=== PATIENT | female | born 1995 | race Caucasian/White ===

== ENCOUNTER → 2019-12-31 14:19 | Outpatient (CLI) | payer OTHER, SELFPAY ==
[2020-01-04 00:15] LABS: COVID19 Sendout Not Detected (Not Detected)
== END ==
PROVIDERS: Visit Provider Physician Assistant
DX: J02.9 Acute pharyngitis, unspecified (principal)
CPT/HCPCS: 87635

== ENCOUNTER → 2020-05-02 10:18 | Outpatient (CLI) | payer OTHER, SELFPAY ==
[2020-05-02 12:12] LABS: Add Manual Diff / Slide Review NO; Basophils Absolute Auto 0 /uL (0-100); Basophils Percent Auto 0.4 % (0-2); Eosinophils Absolute Auto 0 /uL (0-450); Eosinophils Percent Auto 0.8 % (2-4); Hematocrit 38.2 % (36-46); Hemoglobin 12.8 g/dL (12.0-16.0); Lymphocytes Absolute Auto 2000 /uL (1100-4500); Lymphocytes Percent Auto 31.1 % (25-40); Mean Corpuscular HGB Conc 33.5 % (30-36); Mean Corpuscular Hemoglobin 28.4 PG (26-34); Mean Corpuscular Volume 84.7 fL (80-100); Monocytes Absolute Auto 300 /uL (0-900); Monocytes Percent Auto 4.8 % (3-14); Neutrophils Absolute Auto 4000 /uL (1500-7000); Neutrophils Percent Auto 62.9 % (50-75); Platelet Count 201 X10^3/uL (150-400); Red Blood Cell Count 4.51 X10^6/uL (4.0-5.2); Red Cell Distribution Width 12.9 % (11.6-14.8); White Blood Cell Count 6.4 X10^3/uL (4.5-11.0)
[2020-05-02 12:32] LABS: Pregnancy Test Urine Negative (Negative); UR Morphine/Opiate cutoff 300 Negative (Negative); Ur Creatinine Normal (Normal); Ur Specific Gravity Normal (Normal); Urine Amphetamines Negative (Negative); Urine Barbiturates Negative (Negative); Urine Benzodiazepines Negative (Negative); Urine Cocaine Negative (Negative); Urine MDMA Negative (Negative); Urine Methadone Negative (Negative); Urine Methamphetamines Negative (Negative); Urine Oxycodone Negative (Negative); Urine Phencyclidine Negative (Negative); Urine Tetrahydrocannabinol Positive (Negative); Urine Tricyclic Antidepressant Negative (Negative); Urine pH Normal (Normal)
[2020-05-02 12:45] LABS: Lithium 0.5 mmol/L (0.6-1.2)
[2020-05-02 12:51] LABS: Alanine Aminotransferase 9 IU/L (<35); Albumin 4.9 g/dL (3.5-5.0); Albumin Globulin Ratio 1.6 (1.0-2.8); Alkaline Phosphatase 62 U/L (38-126); Aspartate Aminotransferase 39 IU/L (14-36); BUN Creatinine Ratio 18.1 (6-22); Bilirubin Total 0.2 mg/dL (0.2-1.3); Blood Urea Nitrogen 13 mg/dL (7-17); Calcium 10.1 mg/dL (8.4-10.2); Carbon Dioxide 27 mmol/L (22-32); Chloride 105 mmol/L (98-107); Estimated Glomerular Filt Rate > 60.0 mL/min (>60); Globulin 3.1 g/dL (1.7-4.1); Glucose 85 mg/dL (70-100); HEMOLYSIS < 15 (0-50); Potassium 4.5 mmol/L (3.4-5.1); Sodium 137 mmol/L (137-145)
[2020-05-02 13:05] LABS: Free T4, Direct Thyroxine 0.97 ng/dL (0.78-2.19)
[2020-05-02 13:20] LABS: Thyroid Stimulating Hormone 1.55 uIU/mL (0.47-4.68)
== END ==
PROVIDERS: Referring Provider Psychiatry & Neurology Psychiatry; Visit Provider Psychiatry & Neurology Psychiatry
DX: F31.81 Bipolar II disorder (principal)
CPT/HCPCS: 36415; 80053; 80178; 80305; 81025; 84439; 84443; 85025; 90792

== ENCOUNTER 2020-09-23 17:41 | Emergency (ER) | payer OTHER, MEDICAID, SELFPAY ==
[2020-09-23 17:48] VITALS: BP 114/72; PULSE 83; RESP 14; TEMP 36.9; O2SAT 99; BMI 24.9
--- NOTE | 2020-09-23 18:36 | ED_ITS ---
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 Patient was having some vaginal dryness, she has been using a Replens vaginal gel which was recommended the an acquaintance. Patient states that it is white in color. She has been using it for 3 days, use it for another 3 day. On the 18 of September. Patient noted that she is began to have white discharge that is clumps. She has appreciated this before and after she had sexual activity with her partner. She has had some discomfort with sexual activity but she states that was present prior to using the medication and that was why she was using the vaginal gel. She denies any fevers, she denies any abdominal, back or flank pain. She denies any vaginal bleeding. She denies any urinary or GI symptoms. Patient states that she takes lithium and is having Wellbutrin added shortly to her medications. She was concerned about possible yeast infection although she did note in the reviews that this medication will sometimes have white discharge after use. Patient has not had any fevers, she has not had any itching, no burning, no irritation or other skin changes appreciated. She states her normal discharge has ceased. Related Data Previous Rx's Medication Instructions Recorded lithium carbonate 300 mg tablet 600 mg PO BEDTIME #60 tab 07/11/20 Allergies Allergy/AdvReac Type Severity Reaction Status Date / Time methadone Allergy Severe angioedema Verified 09/23/20 17:52 nitroglycerin Allergy Severe pancreatiti Verified 09/23/20 17:52 [From Nitro-Bid] s sumatriptan Allergy Severe anaphylatic Verified 09/23/20 17:52 reaction nitrofurantoin Allergy Verified 09/23/20 17:52 Review of Systems Review of Systems ROS Unobtainable: All systems reviewed & are unremarkable except as noted in HPI and below Patient History alcohol intake frequency: holidays/special occasions only Substance Use Type: does not use Exam Narrative Exam Narrative: GENERAL: Alert and oriented x three, thin, well-appearing female in mild distress. HEENT: Head normocephalic, atraumatic, EOMI, pupils reactive, face symmetric, moist mucous membranes NECK: Supple, full range of motion CARDIOVASCULAR: Regular rate and rhythm without murmurs, rubs or gallops. RESPIRATORY: Breath sounds equal bilaterally, no wheezes rales or rhonchi. ABDOMEN: Soft, nontender. Normoactive bowel sounds all 4 quadrants. No guarding or rebound, rigidity, no mass : No CVA tenderness Female: external vaginal exam is normal, the intravaginal tissue is pink does appear dry no vaginal bleeding, patient does have a grainy multi gritty white discharge, there is no foul odor there is no thin, whitish or grayish discharge, no discoloration, no cervical motion tenderness, normal speculum exam, no adnexal tenderness/mass. Bimanual exam is normal, no enlarged or tender uterus. Non-gravid. 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 EXTREMITIES: Normal range of motion, no clubbing or edema. Neurovascularly intact NEUROLOGICAL: Cranial nerves II through XII grossly intact. Moving all extremities SKIN: Warm, dry, no petechiae, no rashes or lesions. Initial Vital Signs Initial Vital Signs: Vital Signs Temperature 98.4 F 09/23/20 17:48 Pulse Rate 83 09/23/20 17:48 Respiratory Rate 14 09/23/20 17:48 Blood Pressure 114/72 09/23/20 17:48 Pulse Oximetry 99 09/23/20 17:48 Course Orders Ordered: ED Orders 09/23/20 18:52 Genital Culture Stat Wet Prep Tric BV Denisse Stat 09/23/20 18:59 Chlamydia Gonorrhea PCR -URINE Stat Reevaluation(s) Reevaluation #1: patient updated on wet prep findings and plan to await cultures. My suspicion for infection is currently low. She has already been in process of setting up appropriate follow up. Time: 19:36 Vital Signs Vital signs: Vital Signs - 8 hr 09/23/20 17:48 Temperature 98.4 F Pulse Rate 83 Respiratory Rate 14 Blood Pressure 114/72 Pulse Oximetry 99 MDM - Female Genitourinary Lab Data Labs: Point of Care Testing Test Results Negative Urine Dip Bedside Urine Glucose Negative Bedside Urine Bilirubin - Negative Bedside Urine Ketone - Negative Urine Specific [place] 1.020 Bedside Urine Occult Blood - Negative Bedside Urine pH 6.5 Bedside Urine Protein - Negative Bedside Urine Urobilinogen - Negative Bedside Urine Nitrite - Negative Bedside Urine Leukocytes - Negative Esterase Discharge Plan Departure Patient Disposition: Home Clinical Impression: Vaginal discharge Instructions: DI for Vaginal Discharge Activity Restrictions/Additional Instructions: Follow up with the roll clamp operator that you have selected for follow up in [place]. I suspect your discharge today is related to the replens gel that you have been using. You can use a water based lubricant for sexual activity in the short term until you are seen by supervisor floor assembly for short term symptoms relief. There are pending vaginal cultures, these should result in the next 48-72 hours and you will be contacted if positive and not on the appropriate medications. Please return for fevers, new abdominal, back or flank pain, vaginal pain, excessive vaginal bleeding such as going through 1 pad per hour or more, lightheadedness or passing out, nausea vomiting or other GI or urinary symptoms. Prescriptions: No Action lithium carbonate 300 mg tablet 600 mg PO BEDTIME Qty: 60 RF: 3
[2020-09-23 19:40] VITALS: BP 118/71; PULSE 76; RESP 17; O2SAT 97
== END 2020-09-23 19:41 | disposition home or self-care (01) ==
PROVIDERS: Emergency Provider Emergency Medicine
DX: N89.8 Other specified noninflammatory disorders of vagina (principal)
CPT/HCPCS: 81003; 81025; 87070; 87205; 87210; 99282; 99283

== ENCOUNTER 2020-10-01 14:34 | Emergency (ER) | payer OTHER, MEDICAID, SELFPAY ==
[2020-10-01 14:58] VITALS: BP 131/60; PULSE 69; RESP 17; TEMP 36.8; O2SAT 100
--- NOTE | 2020-10-01 16:58 | ED.SKABFB ---
HPI - Skin/Abscess/Foreign Bdy General Chief complaint: Skin/Abscess/Foreign Body Stated complaint: itchy rash on left leg for last 3 days Time Seen by Provider: 10/01/20 14:47 Source: patient Mode of arrival: Ambulatory Limitations: no limitations History of Present Illness HPI narrative: 24-year-old female daily smoker with history of ADHD and anxiety as well as bipolar presents with a tender swollen red region of skin overlying her left anterior hip. She denies any obvious injury or break in the skin. She denies any significant swelling or drainage. She denies systemic findings such as fever, chills nor nausea or vomiting. Additionally, she has a small tender swollen lump in her. She has had no abdominal pain or nausea or vomiting. She has had no dysuria, frequency or urgency. She denies vaginal bleeding or discharge. MD complaint: discoloration Onset (ago): day(s) Tetanus up to date: yes Location: LLE (Left anterior hip) Severity: mild Quality: burning and aching Pain Consistency: constant Exacerbating factors: palpation Context: none Associated symptoms: denies other symptoms Treatments prior to arrival: none Related Data Home Medications Medication Instructions Recorded Confirmed bupropion HCl 150 mg 24 hr tablet, 150 mg PO QAM 09/28/20 09/28/20 extended release Previous Rx's Medication Instructions Recorded lithium carbonate 300 mg tablet 600 mg PO BEDTIME #60 tab 07/11/20 doxycycline hyclate 100 mg PO BID #20 tab 10/01/20 Allergies Allergy/AdvReac Type Severity Reaction Status Date / Time methadone Allergy Severe angioedema Verified 10/01/20 15:01 nitrofurantoin Allergy Severe Abdominal Verified 10/01/20 15:02 Pain sumatriptan Allergy Severe anaphylatic Verified 10/01/20 15:01 reaction Review of Systems Constitutional Constitutional: Denies chills, Denies fatigue, Denies fever(s), Denies frequent falls, Denies lethargy and Denies weakness Eyes Eyes: Denies change in vision, Denies eye discharge, Denies irritation and Denies loss of vision ENT Ears, Nose, Mouth, and Throat: Denies change in voice, Denies dizziness, Denies neck pain, Denies sore throat and Denies throat swelling Cardiovascular Cardiovascular: Denies chest pain, Denies irregular heart rhythm, Denies lightheadedness, Denies palpitations, Denies dyspnea, Denies dyspnea on exertion and Denies orthopnea Respiratory Respiratory: Denies cough, Denies dyspnea, Denies dyspnea on exertion and Denies wheezing Gastrointestinal Gastrointestinal: Denies abdominal pain, Denies change in bowel habits, Denies diarrhea, Denies nausea and Denies vomiting Musculoskeletal Musculoskeletal: Denies neck pain and Denies numbness Integumentary/Breasts Skin/Breast: Denies pruritus, Reports erythema, Denies rash, Reports skin pain, Reports skin swelling and Denies wounds Neurologic Neurologic: Denies behavioral changes, Denies confusion, Denies dizziness, Denies frequent falls, Denies loss of vision, Denies numbness and Denies weakness Psychiatric Psychiatric: Denies anxiety, Denies behavioral changes, Denies confusion, Denies depression, Denies homicidal ideation and Denies suicidal ideation Endocrine Endocrine: Denies fatigue, Denies flushing and Denies palpitations Hematologic/Lymphatic Hematologic/Lymphatic: Denies easy bruising Allergic/Immunologic Allergic/Immunologic: Denies urticaria, Denies throat swelling and Denies wheezing Patient History Social History Smoking Status: Current every day smoker Smoking Status: Current every day smoker alcohol intake frequency: holidays/special occasions only Substance Use Type: does not use Exam Narrative Exam Narrative: GEN: AOx3 and in mild distress EYES: Pupils are equal, round, and reactive to light and accommodation. Extraoccular muscles are intact bilaterally. There is no subconjunctival hemorrhage or exudate. CHEST: Lungs are clear to auscultation bilaterally and free of wheezes, rales, or rhonchi. Heart rate is regular rhythm, there are no murmurs, clicks, rubs, or gallops. There is no chest wall tenderness. ABD: Abdomen is soft and nontender. There is no guarding or rebound. Bowel sounds are normal in all 4 quadrants. There is no mass or organomegaly. EXT: Full painless ROM of all extremities with no loss of sensation or strength. SKIN: 7 x 10 cm region of erythema, warmth, minimal swelling and tenderness on left anterior hip. There is no induration, fluctuance, obvious break in the skin or drainage. She does have 1 reactive lymph node in her left inguinal region Initial Vital Signs Initial Vital Signs: Vital Signs Temperature 98.2 F 10/01/20 14:58 Pulse Rate 69 04/10/21 14:58 Respiratory Rate 17 10/01/20 14:58 Blood Pressure 131/60 10/01/20 14:58 Pulse Oximetry 100 10/01/20 14:58 Course Orders Ordered: Discontinued Medications Doxycycline Hyclate (Doxycycline Hyclate 100 Mg Tablet) 100 mg PO NOW ONE Stop: 10/01/20 17:23 Last Admin: 10/01/20 17:34 Dose: 100 mg Documented by: JODI Vital Signs Vital signs: Vital Signs - 8 hr 10/01/20 14:58 Temperature 98.2 F Pulse Rate 69 Respiratory Rate 17 Blood Pressure 131/60 Pulse Oximetry 100 MDM - Skin/Abscess/Foreign Bdy Lab Data Labs: Point of Care Testing Test Results Negative Discharge Plan Departure Patient Disposition: Home Clinical Impression: Cellulitis of hip, left Instructions: DI for Cellulitis -- Adult Activity Restrictions/Additional Instructions: *You have been diagnosed with [redness pain and swelling consistent with cellulitis. There is no evidence at this point of an abscess that would require drainage] *What to do: *Take medications as directed: Antibiotic was sent to [facility] in [place] *Follow up with your primary care provider in 2-3 days, call for an appointment. Let them know you were seen in the Emergency Department and that we ask that you be seen in follow up *Return to ER if you should have any new, worsening or concerning symptoms, such as [fever, chills, nausea, vomiting or worsening symptoms] Prescriptions: New doxycycline hyclate 100 mg tablet 100 mg PO BID Qty: 20 RF: 0 No Action lithium carbonate 300 mg tablet 600 mg PO BEDTIME Qty: 60 RF: 3 bupropion HCl 150 mg tablet extended release 24 hr 150 mg PO QAM RF: 0 Referrals: Marian Tena MD [Primary Care Provider] -
[2020-10-01 17:31] VITALS: BP 123/80; PULSE 69; RESP 15; O2SAT 100
[2020-10-01] MEDS: DOXYCYCLINE HYCLATE 100 MG TABLET PO (17:34)
--- NOTE | 2020-10-01 17:39 | PC.NURSE ---
Left hip redness, swelling, heat, with painful lymph nodes
== END 2020-10-01 17:40 | disposition home or self-care (01) ==
PROVIDERS: Emergency Provider Emergency Medicine; PCP Family Medicine
DX: L03.116 Cellulitis of left lower limb (principal)
CPT/HCPCS: 81025; 99283

== ENCOUNTER 2020-11-02 17:56 | Emergency (ER) | payer OTHER, MEDICAID, SELFPAY ==
[2020-11-02 18:04] VITALS: BP 107/57; PULSE 79; RESP 16; TEMP 36.7; O2SAT 100
--- NOTE | 2020-11-02 19:42 | ED.SKABFB ---
HPI - Skin/Abscess/Foreign Bdy General Chief complaint: Skin/Abscess/Foreign Body Stated complaint: pain, hands are peeling, medication reaction Time Seen by Provider: 11/02/20 19:42 Source: patient Mode of arrival: Ambulatory History of Present Illness HPI narrative: 25-year-old woman with a history of bipolar disorder presents with hands peeling. She was recently treated for left thigh cellulitis with doxycycline. This cellulitis resolved promptly. She noticed that her hands became quite swollen while she was on the antibiotics once the antibiotics were discontinued the swelling went down and she developed a dry peeling rash over both hands. It has been about a week at this point and she is now noticing some pain and tenderness in the right axilla. She is using an [id number] lotion with Lac-Hydrin in it multiple times a day. She denies fevers, redness, purulence or drainage, chest pain, dyspnea, palpitations, abdominal pain, vomiting, diarrhea. Related Data Previous Rx's Medication Instructions Recorded buspirone 5 mg tablet 5 mg PO TID #90 tab 11/01/20 lithium carbonate 300 mg tablet 600 mg PO BEDTIME #60 tab 11/01/20 Allergies Allergy/AdvReac Type Severity Reaction Status Date / Time methadone Allergy Severe angioedema Verified 11/01/20 11:01 nitrofurantoin Allergy Severe Abdominal Verified 11/01/20 11:01 Pain sumatriptan Allergy Severe anaphylatic Verified 11/01/20 11:01 reaction doxycycline Allergy Intermediate Verified 11/01/20 11:01 Review of Systems Review of Systems Narrative: Remainder of complete review of systems is otherwise unremarkable except for that included in the HPI. Patient History Social History Smoking Status: Current every day smoker Smoking Status: Current every day smoker alcohol intake frequency: holidays/special occasions only Substance Use Type: does not use Exam Narrative Exam Narrative: General: Alert appropriate in no acute distress Respiratory: Able to speak in full sentences, no obvious respiratory distress Skin: No obvious rashes, warm and dry Neurologic: Grossly intact no obvious asymmetries or abnormalities Psych: appropriate insight and affect, cooperative Hands: Dry peeling skin over the palmar surfaces of the hands without significant skin cracking, vesicles, purulence or infection. Axilla, small axillary lymph node palpable in the right anterior axilla Initial Vital Signs Initial Vital Signs: Vital Signs Temperature 98.0 F 11/02/20 18:04 Pulse Rate 79 11/02/20 18:04 Respiratory Rate 16 11/02/20 18:04 Blood Pressure 107/57 L 11/02/20 18:04 Pulse Oximetry 100 11/02/20 18:04 Course Vital Signs Vital signs: Vital Signs - 8 hr 11/02/20 18:04 Temperature 98.0 F Pulse Rate 79 Respiratory Rate 16 Blood Pressure 107/57 L Pulse Oximetry 100 MDM - Skin/Abscess/Foreign Bdy MDM Narrative Medical decision making narrative: 25-year-old woman with likely allergic reaction to doxycycline. Discussed using the Lac-Hydrin treatment twice a day and using a Eucerin type lotion during the day each time she washes her hands. Reassured her regarding the right axillary adenopathy. No evidence of infection or more concerning or systemic skin reaction She is safe for home discharge Discharge Plan Departure Patient Disposition: Home Clinical Impression: Allergic reaction to drug Qualifiers: Encounter type: initial encounter Qualified Code(s): T78.40XA - Allergy, unspecified, initial encounter Instructions: DI for Adverse Drug Reaction -- Allergic Activity Restrictions/Additional Instructions: Thank you for coming in today I suspect all of your symptoms are due to an allergy to the dicloxacillin that you completed for the cellulitis in her leg. This swollen hands that you described sound like a side effect of the medication, as the medicine that is cleared from your body, your hands are now less swollen it can be common to have dry peeling skin on the palms. It is okay to continue the lotion that you are currently using morning and night. This does have some chemical and that helps the skin peel a bit more. In between and after you wash her hands, I would recommend Eucerin cream This swelling or noting in your armpit is a swollen lymph node. This means that your body is working well in making sure that you are not developing any infection in your hands. Please make sure you consider doxycycline an allergy from here forward. I wish you the best Prescriptions: No Action buspirone 5 mg tablet 5 mg PO TID Qty: 90 RF: 3 lithium carbonate 300 mg tablet 600 mg PO BEDTIME Qty: 60 RF: 3 Referrals: Marian Tena MD [Primary Care Provider] -
--- NOTE | 2020-11-02 19:44 | PC.NURSE ---
Pt states her hands have been peeling x 1 week. has been using a Lactic Acid lotion and peeling has increased. denies itching. no redness noted.
== END 2020-11-02 20:10 | disposition home or self-care (01) ==
PROVIDERS: Emergency Provider Emergency Medicine; PCP Family Medicine
DX: M79.642 Pain in left hand (principal); T78.40XA Allergy, unspecified, initial encounter
CPT/HCPCS: 99281